=== PATIENT | male | born 1995 | race Caucasian/White ===

== ENCOUNTER 2017-11-12 17:09 | Emergency (ER) | payer SELFPAY ==
--- NOTE | 2017-11-12 17:54 | UC ---
Skin Complaint HPI - HPI Summary HPI Summary: does autobody work, working with an air hammer, when a piece of metal shot into the left forearm, leaving a small laceration. Palpable foreign body, but tip of object is not visible. Family has used magnet to locate and can see that there is a distortion to the skin caused by magnet. Tetanus status is current, in 2017 when he had a FB in the eye. - History of Current Complaint Chief Complaint: UCTrauma Time Seen by Provider: 11/12/17 17:53 Stated Complaint: WC-FB IN LFT ARM Hx Obtained From: Patient Onset/Duration: Sudden Onset, Lasting Hours - about 5 hours ago. Skin Exposure Onset/Duration: Hours Ago - 5 Timing: Constant Onset Severity: Moderate Current Severity: Moderate Pain Intensity: 0 Aggravating Factor(s): Touch - Allergy/Home Medications Allergies/Adverse Reactions: Allergies Allergy/AdvReac Type Severity Reaction Status Date / Time amoxicillin [From Augmentin] Allergy Intermediate Hives Verified 11/12/17 17:34 clavulanic acid Allergy Intermediate Hives Verified 11/12/17 17:34 [From Augmentin] Review of Systems Constitutional: Negative Skin: Other - skin penetration by foreign body Eyes: Negative ENT: Negative Respiratory: Negative Cardiovascular: Negative Gastrointestinal: Negative Genitourinary: Negative Motor: Negative Neurovascular: Negative Musculoskeletal: Negative Neurological: Negative Psychological: Negative Is Patient Immunocompromised?: No All Other Systems Reviewed And Are Negative: Yes PMH/Surg Hx/FS Hx/Imm Hx Previously Healthy: Yes - Surgical History Surgical History: Yes Surgery Procedure, Year, and Place: fx L leg, set 2x - Family History Known Family History: Positive: None - Social History Occupation: Employed Full-time Lives: With Family Alcohol Use: Rare Substance Use Type: None Smoking Status (MU): Never Smoked Tobacco Physical Exam Triage Information Reviewed: Yes Appearance: Well-Appearing, Pain Distress - mild Vital Signs: Initial Vital Signs Temp 98.5 F 11/12/17 17:30 Pulse 80 11/12/17 17:30 Resp 18 11/12/17 17:30 BP 138/73 11/12/17 17:30 Pulse Ox 97 11/12/17 17:30 Respiratory Exam: Normal Cardiovascular Exam: Normal Skin Exam: Other - mid left forearm with entry point from foreign body, approx 3 mm with track of FB visible, but cannot locate tip of it. Laceration Repair - Laceration Repair 1 Description: Linear : No Repair Necessary Laceration Size After Repair: Length (cm) - 3mm entry wound was expanded by 1 mm with sterile blade following EMLA application. Attempted to remove foreign body without success. Contamination/FB Removal: unable to remove foreign body Modified For Repair: Yes - 1 mm extension in effort to retrieve FB Cleansing Completed Via Routine Prep: Yes Irrigation With Pressure Irrigation Device: Yes Course/Dx - Course Course Of Treatment: cover with antibiotic to prevent infection. - Differential Diagnoses - Skin Complaint Differential Diagnoses: Foreign Body - Diagnoses Provider Diagnoses: foreign body left forearm--unsuccessful effort at removal Discharge - Sign-Out/Discharge Documenting (check all that apply): Discharge/Admit/Transfer - Discharge Plan Condition: Stable Disposition: HOME Prescriptions: cephALEXin [Keflex] 500 mg PO QID #20 capsule Forms: *Work Release Referrals: No Primary Care Phys,NOPCP [Primary Care Provider] - Leon VIEYRA,Con Otoole [Medical Doctor] - Additional Instructions: Please call Dr. Quintero's office in the morning to arrange a visit for excision of foreign body. You have had your first does of cephalexin tonight. Next dose is due before bed. Keep the wound covered with topical application of antibiotic ointment. - Billing Disposition and Condition Condition: STABLE Disposition: HOME
--- NOTE | 2017-11-12 18:52 | RAD ---
INDICATION: Metal versus left forearm soft tissue TECHNIQUE: 3 views of the left forearm were obtained. FINDINGS: The bones are normal alignment. Joint spaces appear maintained. No fracture is seen. Overlying the more medial and posterior aspect of the left forearm there is a metallic fragment measuring 3 mm in greatest dimension. IMPRESSION: 3 mm metal fragment in the subcutaneous tissue of the mid-level left forearm.
[2017-11-12] MEDS ORDERED: Lidocaine 2.5%/Prilocain 2.5%* 5 GM TUBE TOPICAL ONE (18:56)
[2017-11-12] MEDS ORDERED: Ibuprofen TAB* 600 MG PO ONE (19:31)
[2017-11-12] MEDS ORDERED: Cephalexin CAP* 500 MG PO ONE (19:54)
== END 2017-11-12 20:08 | disposition home or self-care (01) ==
LOC: UCCORT 17:09
DX: S50.852A Superficial foreign body of left forearm, initial encounter (principal); W22.8XXA Striking against or struck by other objects, initial encounter; Y93.89 Activity, other specified; Y92.9 Unspecified place or not applicable; Y99.0 Civilian activity done for income or pay; Z88.1 Allergy status to other antibiotic agents; Z88.0 Allergy status to penicillin
CPT/HCPCS: 99202; A9270-GY; G0463

== ENCOUNTER 2018-06-06 17:39 | Emergency (ER) | payer BC ==
[2018-06-06 17:52] VITALS: BP 137/66
[2018-06-06] MEDS ORDERED: Albuterol HFA INHALER* 8 gm MDI INH ONE (18:08)
--- NOTE | 2018-06-06 18:29 | UC ---
Respiratory Complaint HPI - HPI Summary HPI Summary: cough, nasal congestion, chest wall pain subjective fevers,for 4 weeks pcp rx zithromax and prednisone with out relief - History of Current Complaint Chief Complaint: UCGeneralIllness Stated Complaint: CONGESTION Time Seen by Provider: 06/06/18 17:52 Hx Obtained From: Patient Onset/Duration: Lasting Weeks - 4, Still Present Timing: Constant Pain Intensity: 0 Pain Scale Used: 0-10 Numeric Character: Cough: Productive Aggravating Factors: Nothing Alleviating Factors: Nothing Associated Signs And Symptoms: Positive: Pleuritic Chest Pain, URI, Nasal Congestion - Allergies/Home Medications Allergies/Adverse Reactions: Allergies Allergy/AdvReac Type Severity Reaction Status Date / Time amoxicillin [From Augmentin] Allergy Intermediate Hives Verified 06/06/18 17:52 clavulanic acid Allergy Intermediate Hives Verified 06/06/18 17:52 [From Augmentin] PMH/Surg Hx/FS Hx/Imm Hx Previously Healthy: Yes - Surgical History Surgical History: Yes Surgery Procedure, Year, and Place: fx L leg, set 2x - Family History Known Family History: Positive: None - Social History Occupation: Employed Full-time Lives: With Family Alcohol Use: Rare Substance Use Type: None Smoking Status (MU): Never Smoked Tobacco Review of Systems All Other Systems Reviewed And Are Negative: Yes Constitutional: Positive: Chills, Fatigue Skin: Positive: Negative Eyes: Positive: Negative ENT: Positive: Nasal Discharge, Sinus Congestion Respiratory: Positive: Cough Cardiovascular: Positive: Negative Gastrointestinal: Positive: Negative Genitourinary: Positive: Negative Motor: Positive: Negative Neurovascular: Positive: Negative Musculoskeletal: Positive: Arthralgia Neurological: Positive: Negative Psychological: Positive: Negative Is Patient Immunocompromised?: No Physical Exam Triage Information Reviewed: Yes Appearance: Well-Appearing, No Pain Distress, Well-Nourished Vital Signs: Initial Vital Signs Temp 97.8 F 06/06/18 17:47 Pulse 79 06/06/18 17:47 Resp 18 06/06/18 17:47 BP 137/66 06/06/18 17:47 Pulse Ox 99 06/06/18 17:47 Vital Signs Reviewed: Yes Eye Exam: Normal Eyes: Positive: Conjunctiva Clear ENT Exam: Normal ENT: Positive: Normal ENT inspection, Hearing grossly normal, Pharynx normal, Nasal congestion, Nasal drainage, TMs normal, Uvula midline. Negative: Tonsillar swelling, Tonsillar exudate, Trismus, Muffled voice, Hoarse voice, Dental tenderness, Sinus tenderness Dental Exam: Normal Neck exam: Normal Neck: Positive: Supple, Nontender, No Lymphadenopathy Respiratory Exam: Normal Respiratory: Positive: Chest non-tender, Lungs clear, Normal breath sounds, No respiratory distress, No accessory muscle use Cardiovascular Exam: Normal Cardiovascular: Positive: RRR, No Murmur, Pulses Normal, Brisk Capillary Refill Musculoskeletal Exam: Normal Musculoskeletal: Positive: Strength Intact, ROM Intact, No Edema Neurological Exam: Normal Neurological: Positive: Alert, Muscle Tone Normal Psychological Exam: Normal Skin Exam: Normal Diagnostic Evaluation - Laboratory O2 Sat by Pulse Oximetry: 99 Respiratory Course/Dx - Course Course Of Treatment: flonase, albuterol, mucinex d ibuprofen increase fluids follow with pcp prn - Differential Dx/Diagnosis Provider Diagnosis: Viral respiratory illness Discharge - Sign-Out/Discharge Documenting (check all that apply): Patient Departure All imaging exams completed and their final reports reviewed: No Studies - Discharge Plan Condition: Stable Disposition: HOME Prescriptions: Fluticasone NASAL SPRAY 50MCG* [Flonase NASAL SPRAY 50MCG*] 2 spray BOTH NARES DAILY #1 btl Ibuprofen TAB* [Motrin TAB* 600 MG] 600 mg PO Q6H PRN #40 tab PRN Reason: pain/fever Patient Education Materials: Decongestant/Expectorant (By mouth), Fluticasone ( Into the nose), Viral Syndrome (ED), How to Use a Metered-Dose Inhaler and a Spacer (ED) Referrals: AMYRA Cooper [Medical Doctor] - If Needed - Billing Disposition and Condition Condition: STABLE Disposition: Home
== END 2018-06-06 18:22 | disposition home or self-care (01) ==
LOC: UCCORT 17:39
DX: B34.9 Viral infection, unspecified (principal); Z88.0 Allergy status to penicillin; Z88.8 Allergy status to other drugs, medicaments and biological substances
CPT/HCPCS: 99212; A9270-GY; G0463

== ENCOUNTER 2019-02-20 16:22 | Emergency (ER) | payer BC ==
--- OUTSIDE RECORDS SUMMARY | 2019-02-20 16:28 | XMS REPORT | Continuity of Care Document ---
:1995 External Reference #:[id number] Author Name Joon Sanchez M.D. (transmitted by agent of provider Nayeli Torres) Address [address] [place] [address] Care Team Providers Name Role Phone Monica Chopra MD - Equipment Oiler Care Team Information Senior Compliance Analyst Problems Active Problems Provider Date Hypertrophy of tonsils Joon Sanchez M.D. Onset: 04/23/2011 Dysphagia Joon Sanchez M.D. Onset: 04/23/2011 Social History Type Date Description Comments Sex Male Tobacco Use Start: Unknown Patient has never smoked Smoking Status Reviewed: 11/13/17 Patient has never smoked Allergies, Adverse Reactions, Alerts Active Allergies Reaction Severity Comments Date Augmentin rash 06/03/2010 Medications Description No Active Medications Immunizations Description No Information Available Vital Signs Date Vital Result Comment 02/08/2019 5:21pm Weight 208.00 lb Height 69.5 inches 5'9.50" BMI (Body Mass Index) 30.3 kg/m2 BP Systolic 123 mmHg BP Diastolic 76 mmHg Heart Rate 62 /min O2 % BldC Oximetry 98 % Body Temperature 97.6 F Pain Level 0 01/18/2019 4:46pm Weight 206.00 lb Height 69.5 inches 5'9.50" BMI (Body Mass Index) 30.0 kg/m2 BP Systolic 117 mmHg BP Diastolic 81 mmHg Heart Rate 58 /min O2 % BldC Oximetry 98 % Body Temperature 97.6 F Colton Score 7 Pain Level 0 Results Description No Information Available Procedures Date Code Description Status 01/18/2019 13382 Fiberoptic Laryngoscopy,Diag. Completed 11/12/2017 856990315 Bone Mineral Density Test Completed 11/12/2017 872805062 Diabetic Retinal Eye Exam Completed 11/12/2017 741406688 Diabetic Foot Exam Completed Medical Devices Description No Information Available Encounters Type Date Location Provider Dx Diagnosis Office Visit 01/18/2019 5:15p Main Office Joon Sanchez M.D. R06.83 Snoring G47.9 Sleep disorder, unspecified G47.10 Hypersomnia, unspecified Assessments Date Code Description Provider 01/18/2019 R06.83 Snoring Joon Sanchez M.D. 01/18/2019 G47.9 Sleep disorder, unspecified Joon Sanchez M.D. 01/18/2019 G47.10 Hypersomnia, unspecified Joon Sanchez M.D. Plan of Treatment 11/24/2017 - Con Quintero [id number] Encounter for follow-up examination after completed treatment for conditions other than malignant neoplasmComments:One stitch was removed. Instructed to cleanse with peroxide daily for 2-3 more days. RTO PRN. Functional Status Description No Information Available Mental Status Description No Information Available Referrals Description No Information Available
[2019-02-20 16:32] VITALS: BP 121/70
--- NOTE | 2019-02-20 16:37 | UC ---
Elbow Pain - HPI Summary HPI Summary: Pt presents with c/o sudden onset of left elbow swelling, tenderness and redness. Pt denies injury, exposure to irritant, insect bite or thermal exposure. Pt states he has been doing a "lot of work on his house" recently. - History of Current Complaint Chief Complaint: UCUpperExtremity Stated Complaint: LEFT ELBOW SWOLLEN/REDNESS Time Seen by Provider: 02/20/19 16:27 Hx Obtained From: Patient Onset/Duration: Days Severity Initially: Mild Severity Currently: Moderate Pain Intensity: 6 Location Of Pain: Is Discrete @ - left elbow Character: Dull, Aching Aggravating Factor(s): Movement Alleviating Factor(s): Rest Associated Signs And Symptoms: Positive: Swelling, Redness - Allergies/Home Medications Allergies/Adverse Reactions: Allergies Allergy/AdvReac Type Severity Reaction Status Date / Time amoxicillin [From Augmentin] Allergy Intermediate Hives Verified 02/20/19 16:32 clavulanic acid Allergy Intermediate Hives Verified 02/20/19 16:32 [From Augmentin] PMH/Surg Hx/FS Hx/Imm Hx Previously Healthy: Yes - Surgical History Surgical History: Yes Surgery Procedure, Year, and Place: fx L leg, set 2x. [place] teeth - Family History Known Family History: Positive: Cardiac Disease - Social History Occupation: Employed Full-time Lives: With Family Alcohol Use: Rare Substance Use Type: None Smoking Status (MU): Never Smoked Tobacco Have You Smoked in the Last Year: No Review of Systems All Other Systems Reviewed And Are Negative: Yes Constitutional: Positive: Negative Skin: Positive: Other - erythema Eyes: Positive: Negative ENT: Positive: Negative Respiratory: Positive: Negative Cardiovascular: Positive: Negative Gastrointestinal: Positive: Negative Genitourinary: Positive: Negative Motor: Positive: Other - pain with ROM Neurovascular: Positive: Negative Musculoskeletal: Positive: Arthralgia, Edema, Myalgia Neurological: Positive: Negative Psychological: Positive: Negative Is Patient Immunocompromised?: No Physical Exam Triage Information Reviewed: Yes Appearance: Well-Appearing Vital Signs: Initial Vital Signs Temp 98.2 F 02/20/19 16:28 Pulse 68 02/20/19 16:28 Resp 16 02/20/19 16:28 BP 121/70 02/20/19 16:28 Pulse Ox 98 02/20/19 16:28 Vital Signs Reviewed: Yes Eye Exam: Normal ENT: Positive: Hearing grossly normal Dental Exam: Normal Neck exam: Normal Respiratory: Positive: Normal breath sounds Musculoskeletal: Positive: Edema @ - left elbow, bursa Neurological Exam: Normal Psychological Exam: Normal Skin Exam: Other - left elbow erythematous and warm to touch Elbow Pain Course/Dx - Differential Dx/Diagnosis Differential Diagnosis/HQI/PQRI: Bursitis, Cellulitis Provider Diagnosis: Bursitis of left elbow Discharge ED - Sign-Out/Discharge Documenting (check all that apply): Patient Departure All imaging exams completed and their final reports reviewed: No Studies - Discharge Plan Condition: Stable Disposition: HOME Prescriptions: DOXYcycline CAP(*) [DOXYcycline 100MG CAP(*)] 100 mg PO Q12H #20 cap Patient Education Materials: Elbow Bursitis (ED), Ice Pack Application (ED), Safe Use of NSAIDs (ED) Referrals: MAYRA Cooper [Primary Care Provider] - If Needed Delroy Palafox MD [Emergency Provider] - If Needed - Billing Disposition and Condition Condition: STABLE Disposition: Home - Attestation Statements Provider Attestation: I was available for consult. This patient was seen by the [facility]. The patient was not presented to , seen by or examined by pa -Delroy Palafox MD
== END 2019-02-20 16:45 | disposition home or self-care (01) ==
LOC: UCCORT 16:22
DX: M71.9 Bursopathy, unspecified (principal)
CPT/HCPCS: 99212; G0463